=== PATIENT | female | born 1990 | race Caucasian/White ===

== ENCOUNTER 2016-08-01 | Emergency (ER) | payer SELFPAY ==
[~2016-08-01] MED LIST: NO MEDICATIONS; ZOFRAN4 M2 PO
[2016-08-01] MEDS ORDERED: TYLENOL325 M2 PO (21:47)
[2016-08-01] MEDS ORDERED: PROVENTIL HFA6.7 G1 INH (21:47)
== END 2016-08-02 00:02 ==
DX: O99.511 Diseases of the respiratory system complicating pregnancy, first trimester (principal); J06.9 Acute upper respiratory infection, unspecified; O99.89 Other specified diseases and conditions complicating pregnancy, childbirth and the puerperium; R19.7 Diarrhea, unspecified; Z3A.01 Less than 8 weeks gestation of pregnancy